=== PATIENT | male | born 1990 | race Asian ===

== ENCOUNTER 2018-09-02 | Emergency (ER) | payer OTHER ==
[~2018-09-02] VITALS: Ht 182.9 cm; Wt 86.2 kg
[2018-09-02 00:26] VITALS: BP 131/92
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
[2018-09-02] MEDS ORDERED: Ketorolac 60mg Inj IM ONE (01:00)
[2018-09-02] MEDS ORDERED: IBUPROFEN600 MG ORAL (02:42)
[2018-09-02] MEDS ORDERED: CYCLOBENZAPRINE10 MG ORAL (02:42)
[2018-09-02 03:02] VITALS: BP 126/84
--- NOTE | 2018-09-02 03:03 | NUR ---
ER Nurse Note: patient is being discharged, cleared by ERMD. Discharge instructions/paper/prescription given to the patient, patient verbalized understanding, signed paper. Instructed pt to follow up with primary care physican within one. a/o x4, VSS. All belongings taken with the patient. patient is ambulatory, steady gait. ID band removed. All belongings taken wtih pt; steady gait, left via own transportation.
--- NOTE | 2018-09-02 09:42 | Diagnostic Imaging Report ---
Indication: Back pain Technique: Continuous helical transaxial imaging of the lumbar spine was obtained from the lung bases to the pubic symphysis. No IV contrast was administered. Coronal 2-D reformats were also obtained. Study obtained in a Siemens sensation [address] Total Dose length Product (DLP): 679.[address] Dose Index Volume (CTDIvol): 16.32 mGy Comparison: None Findings: There is no evidence of an acute fracture or malalignment. Height and configuration of the vertebral bodies and intervertebral discs are within normal limits. The facets are unremarkable. There is no soft tissue swelling. There is transitional anatomy at the lumbosacral junction noted. Impression: Negative lumbar spine CT. No acute findings. [facility] has communicated the preliminary results to the Emergency Department. Their findings are largely concordant with this report. The CT scanner at [facility] is accredited by the [employer] and the scans are performed using dose optimization techniques as appropriate to a performed exam including Automatic Exposure control.
== END 2018-09-02 03:04 | disposition home or self-care (01) ==
LOC: EDBD → EMR 00:50
DX: M43.17 Spondylolisthesis, lumbosacral region (principal); J06.9 Acute upper respiratory infection, unspecified
CPT/HCPCS: 72131; 86710; 96372; 99284